=== PATIENT | male | born 1975 | race Caucasian/White ===

== ENCOUNTER 2020-04-08 01:27 | Emergency (ER) | payer BC, SELFPAY ==
--- NOTE | 2020-04-08 10:59 | RAD ---
RIGHT FOOT RADIOGRAPHS THREE VIEWS: 04/08/20 PROVIDED CLINICAL HISTORY: Pain status post injury. FINDINGS: There is a transversely oriented, nondisplaced fracture involving the proximal fifth metatarsal shaft . No additional fracture is evident. Alignment appears anatomic. Joint spaces appear preserved. Calca stuart enthesophyte formation is demonstrated. Calcification at the plantar aspect of the hindfoot on t he lateral view, not further localized on the other projections, possibly associated with the subcuta neous fat. IMPRESSION: Nondisplaced fifth metatarsal fracture. POS: KATIE
== END 2020-04-08 04:50 | disposition home or self-care (01) ==
LOC: ERS 01:27
DX: S92.354A Nondisplaced fracture of fifth metatarsal bone, right foot, initial encounter for closed fracture (principal); I10 Essential (primary) hypertension; J45.909 Unspecified asthma, uncomplicated; X50.1XXA Overexertion from prolonged static or awkward postures, initial encounter